=== PATIENT | female | born 1950 | race Caucasian/White ===

== ENCOUNTER 2017-01-15 09:42 | Outpatient (CLI) | payer MEDICARE | END 2017-01-15 09:43 | disposition home or self-care (01) | LOC: BICMAMMO 09:42 | PROVIDERS: ATTEND Specialist | DX: Z12.31 Encounter for screening mammogram for malignant neoplasm of breast (principal) | CPT/HCPCS: 77063 ==

== ENCOUNTER 2018-01-19 13:15 | Outpatient (CLI) | payer MEDICARE, OTHER | END 2018-01-19 13:16 | disposition home or self-care (01) | LOC: BICMAMMO 13:15 | PROVIDERS: ATTEND Family Medicine | DX: Z12.31 Encounter for screening mammogram for malignant neoplasm of breast (principal); Z80.3 Family history of malignant neoplasm of breast | CPT/HCPCS: 77063; 77067 ==

== ENCOUNTER 2019-01-27 09:01 | Emergency (ER) | payer MEDICARE, OTHER ==
--- NOTE | 2019-01-27 10:30 | RAD ---
LEFT HIP 3 VIEWS: Date: 01/27/19 HISTORY: Left hip pain. FINDINGS: There are marked arthritic changes of the hip. There is prominent spur formation along the femoral he ad/neck junction and prominent bump along the lateral femoral head/neck angle. 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 There is only minimal joint space narrow ing. There is some subchondral cystic change involving the femoral head, but I do not see any bony co llapse. IMPRESSION: Arthritic changes of the hip as discussed above. Some element of developing osteonecrosis of the femo ral head is a possibility given the subchondral cystic change. POS: [facility]
--- NOTE | 2019-01-27 11:40 | CT ---
CT LUMBAR SPINE WITHOUT CONTRAST: HISTORY: A 69-year-old female with low back pain and left leg pain. FINDINGS: Multilevel degenerative changes are seen, manifested by disk space narrowing, vacuum disk phenomenon, osteophyte formation, broad-based disk bulges and facet and ligamentum flavum hypertrophic changes. There is mild levoscoliosis of the lumbar spine. There is right sided neural foraminal stenosis at the L4-L5 level and left sided lateral recess and n eural foraminal stenosis at the L4-L5 level and left sided neural foraminal stenosis at the L5-S1 lev el. No compression fracture or subluxation is seen. IMPRESSION: Lumbar spondylosis with stenotic changes, as discussed above. POS: DAYAN
[2019-01-27] MEDS ORDERED: Dexamethasone 10 MG/ML VIAL ONE (11:42)
== END 2019-01-27 11:58 | disposition home or self-care (01) ==
LOC: ERS 09:01
DX: M51.16 Intervertebral disc disorders with radiculopathy, lumbar region (principal); Z79.899 Other long term (current) drug therapy
CPT/HCPCS: 72131; J1100

== ENCOUNTER 2019-02-24 12:49 | Outpatient (CLI) | payer MEDICARE ==
--- NOTE | 2019-02-24 13:25 | MMO ---
Bilateral MAMMO Bilat Screen [facility]. CLINICAL HISTORY: Patient is 69 years old and is seen for screening. The patient has no family history of breast cancer. The patient has no personal history of cancer. VIEWS: The views performed were: bilateral craniocaudal with tomosynthesis and bilateral mediolateral oblique with tomosynthesis. FILMS COMPARED: The present examination has been compared to prior imaging studies performed at [facility] on 07/25/2014, 09/25/2015, 01/15/2017 and 01/19/2018. This study has been interpreted with the assistance of computer-aided detection. MAMMOGRAM FINDINGS: The breasts are almost entirely fat. There are no suspicious masses, suspicious calcifications, or new areas of architectural distortion. IMPRESSION: THERE IS NO MAMMOGRAPHIC EVIDENCE OF MALIGNANCY. A ROUTINE FOLLOW-UP MAMMOGRAM IN 1 YEAR IS RECOMMENDED. THE RESULTS OF THIS EXAM WERE SENT TO THE PATIENT. ACR BI-RADS Category 1 - Negative MAMMOGRAPHY NOTE: 1. A negative mammogram report should not delay a biopsy if a dominant of clinically suspicious mass is present. 2. Approximately 10% to 15% of breast cancers are not detected by mammography. 3. Adenosis and dense breasts may obscure an underlying neoplasm. Reported by: MED DELONG MD Electonically Signed: [id number]
--- NOTE | 2019-02-24 13:41 | BD ---
DEXA BONE MINERAL DENSITY STUDY: HISTORY: Osteoporosis screening. Unspecified menopausal and perimenopausal disorder. COMPARISON: None. FINDINGS: LUMBAR SPINE BMD (g/cm2) T-SCORE Z-SCORE L1 0.84 -1.0 0.8 L2 1.029 0.0 2.0 L3 1.126 0.4 2.5 L4 1.211 1.4 3.5 TOTAL 1.062 0.1 2.2 FEMORAL NECK 0.769 -0.7 1.0 TOTAL LEFT HIP 0.829 -0.9 0.5 WHO CLASSIFICATION: Normal. IMPRESSION: Normal bone mineral density. POS: [facility]
== END 2019-02-24 12:50 | disposition home or self-care (01) ==
LOC: BICMAMMO 12:49
PROVIDERS: ATTEND Family Medicine
DX: Z12.31 Encounter for screening mammogram for malignant neoplasm of breast (principal); Z13.820 Encounter for screening for osteoporosis; N95.9 Unspecified menopausal and perimenopausal disorder; M54.5 Low back pain
CPT/HCPCS: 77063; 77067; 77080

== ENCOUNTER 2019-03-11 12:44 | Day surgery (SDC) | payer MEDICARE ==
[2019-03-10 10:20] VITALS: BMI 25.1
[~2019-03-11 12:44] MED LIST: Dexamethasone 20 MG/5 ML VIAL ONE; Lidocaine 1% PF 5 ML VIAL ONE; Ondansetron PF 4 MG/2 ML Vial ONE; PROPOFOL 200 MG/20 ML VIAL ONE
[2019-03-11] MEDS ORDERED: Fentanyl 100 MCG/2 ML VIAL ONE (12:59)
--- NOTE | 2019-03-11 14:10 | MRI ---
MR the lumbar spine without contrast: 03/11/2019 History: Low back pain COMPARISON: None. TECHNIQUE: Multiplanar multisequence MR images were obtained of lumbar spine without IV contrast FINDINGS: On the basis of 5 lumbar type vertebral bodies, conus medullaris terminates at [id number] level. Sagittal STIR imaging demonstrates no focal area of osseous marrow edema. Lumbar levoscoliosis noted, incompletely assessed on this exam. T12-L1:Mild bilateral facet hypertrophy. Intervertebral disc height and signal intensity within katheryn l limits with no significant central canal or neural foraminal stenosis. L1-2:Mild bilateral facet hypertrophy. No significant central canal or neural foraminal stenosis. Min imal disc bulge. L2-3:Disc space narrowing and disc desiccation with disc bulge. Mild bilateral facet hypertrophy. No significant central canal or neural foraminal stenosis. L3-4:Disc space narrowing with disc desiccation and minimal disc bulge. Mild bilateral facet hypertro phy. Degenerative endplate change. No significant central canal or neural foraminal stenosis. L4-5:There is disc space narrowing and disc desiccation. A small foraminal disc protrusion and associ ated osteophyte formation is noted on the left with mild left neural foraminal stenosis and mild left lateral recess stenosis. No significant right neural foraminal stenosis. L5-S1: Bilateral facet hypertrophy, left greater than right. Moderate/severe left neural foraminal st enosis. No significant central canal or right neural foraminal stenosis. Scattered benign hemangiomata are noted within the lumbar spine. The rectum lies within 3 mm of the ventral cortex of the sacrum. Image retroperitoneal structures demonstrateno acute findings. Partially visualized diverticulosis in the region of the descending colon and sigmoid colon noted. IMPRESSION: Multilevel lumbar spine degenerative findings as above.
== END 2019-03-11 15:07 | disposition home or self-care (01) ==
LOC: SDC/OP 12:44
PROVIDERS: ATTEND Orthopaedic Surgery
DX: M54.5 Low back pain (principal); M47.816 Spondylosis without myelopathy or radiculopathy, lumbar region; K57.30 Diverticulosis of large intestine without perforation or abscess without bleeding; D18.09 Hemangioma of other sites; F40.240 Claustrophobia; E03.9 Hypothyroidism, unspecified; Z79.899 Other long term (current) drug therapy; Z88.2 Allergy status to sulfonamides
CPT/HCPCS: 72148; J3010

== ENCOUNTER 2020-02-28 09:50 | Outpatient (CLI) | payer MEDICARE ==
--- NOTE | 2020-02-28 10:47 | MMO ---
Bilateral MAMMO Bilat Screen [facility]. CLINICAL HISTORY: Patient is 70 years old and is seen for screening. The patient has no family history of breast cancer. The patient has no personal history of cancer. VIEWS: The views performed were: bilateral craniocaudal with tomosynthesis and bilateral mediolateral oblique with tomosynthesis. FILMS COMPARED: The present examination has been compared to prior imaging studies performed at [facility] on 09/25/2015, 01/15/2017, 01/19/2018 and 02/24/2019. This study has been interpreted with the assistance of computer-aided detection. MAMMOGRAM FINDINGS: The breasts are almost entirely fat. There are no suspicious masses, suspicious calcifications, or new areas of architectural distortion. IMPRESSION: THERE IS NO MAMMOGRAPHIC EVIDENCE OF MALIGNANCY. A ROUTINE FOLLOW-UP MAMMOGRAM IN 1 YEAR IS RECOMMENDED. THE RESULTS OF THIS EXAM WERE SENT TO THE PATIENT. ACR BI-RADS Category 1 - Negative MAMMOGRAPHY NOTE: 1. A negative mammogram report should not delay a biopsy if a dominant of clinically suspicious mass is present. 2. Approximately 10% to 15% of breast cancers are not detected by mammography. 3. Adenosis and dense breasts may obscure an underlying neoplasm. Reported by: MED DELONG MD Electonically Signed: [id number]
== END 2020-02-28 09:51 | disposition home or self-care (01) ==
LOC: BICMAMMO 09:50
PROVIDERS: ATTEND Family Medicine Sports Medicine
DX: Z12.31 Encounter for screening mammogram for malignant neoplasm of breast (principal)
CPT/HCPCS: 77063; 77067

== ENCOUNTER 2021-04-09 13:07 | Outpatient (CLI) | payer MEDICARE | END 2021-04-09 13:08 | disposition home or self-care (01) | LOC: BICMAMMO 13:07 | PROVIDERS: ATTEND Family Medicine Sports Medicine | DX: Z12.31 Encounter for screening mammogram for malignant neoplasm of breast (principal) | CPT/HCPCS: 77063; 77067 ==